=== PATIENT | male | born 1975 | race Two or more races ===

== ENCOUNTER 2024-08-24 10:55 | Day surgery (SDC) | payer BC, SELFPAY ==
[2024-08-19 10:26] VITALS: BMI 32.0
--- NOTE | 2024-08-19 10:38 | EKG_ITS ---
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
[2024-08-19 11:36] LABS: Collection Type, Urine Clean Catch
[2024-08-19 11:44] LABS: Basophils # (Auto) 0.1 Thou/mm3 (0.0-0.2); Basophils % (Auto) 1 % (0-2.5); Eosinophils # (Auto) 0.2 Thou/mm3 (0.0-0.5); Eosinophils % (Auto) 2 % (0-10); Hemoglobin 16.1 g/dL (13.5-16.0); Immature Granulocytes % (Auto) 0 % (0-0); Immature Granulocytes Auto 0.02 Thou/mm3 (0.00-0.00); Lymphocytes # (Auto) 1.7 Thou/mm3 (1.0-4.8); Lymphocytes % (Auto) 25 % (10-50); Mean Corpuscular Hemoglobin 30.1 pg (25.0-35.0); Mean Corpuscular Volume 86 fL (80-100); Monocytes # (Auto) 0.8 Thou/mm3 (0.0-0.8); Monocytes % (Auto) 13 % (0-12); Neutrophils # (Auto) 3.9 Thou/mm3 (1.8-7.7); Neutrophils % (Auto) 59 % (37-80); Nucleated Red Blood Cell % 0 /100 WBC (0); Platelet Count 300 Thou/mm3 (140-440); RDW Standard Deviation 41.2 fL (35.1-43.9); Red Blood Count 5.35 Miln/mm3 (4.50-5.90); White Blood Count 6.6 Thou/mm3 (3.8-10.6)
[2024-08-19 11:46] LABS: Bilirubin,Urine Negative (Negative); Blood,Urine Negative (Negative); Clarity,Urine Clear (Clear/Hazy); Color,Urine Colorless (Lt Yel-Yel); Glucose, Urine Negative (Negative); Ketones,Urine Negative (Negative); Leukocyte Esterase,Urine Negative (Negative); Nitrite,Urine Negative (Negative); Protein,Urine Negative (Neg - Trace); RBC,Urine 1 /hpf (0-3); Squamous Epithelial Cell,Urine < 1 /hpf (0-5); Urobilinogen,Urine Negative mg/dL (0.0-1.0); WBC,Urine < 1 /hpf (0-5)
[2024-08-19 12:01] LABS: Partial Thromboplastin Time 29.8 Seconds (22.0-36.0)
[2024-08-19 12:02] LABS: Alanine Aminotransferase 31 U/L (10-49); Albumin/Globulin Ratio 1.9 (1.2-2.2); Alkaline Phosphatase 112 U/L (46-116); Anion Gap 7 (7-16); Aspartate Amino Transferase 44 U/L (0-34); BUN/Creatinine Ratio 15 Ratio (12-20); Bilirubin,Total 0.9 mg/dL (0.3-1.2); Blood Urea Nitrogen 17 mg/dL (9-23); Calcium 9.7 mg/dL (8.3-10.6); Calcium (Corrected) 9.7 mg/dL (8.5-10.1); Carbon Dioxide 25.3 mMol/L (20.0-31.0); Chloride 103 mMol/L (98-107); Creatinine (Component) 1.1 mg/dL (0.6-1.3); Estimated Creatinine Clearance 94.7 mL/min (>60); Globulin 2.6 gm/dL (2.3-3.5); Glucose 116 mg/dL (74-106); Osmolality,Calculated 272 (275-295); Potassium 4.1 mMol/L (3.4-5.1); Sodium 135 mMol/L (136-145); Total Protein 7.6 gm/dL (5.7-8.2); eGFR > 60 See Note
--- NOTE | 2024-08-23 20:10 | PD.SURHP ---
HPI Date of Admission 08/24/2024 Chief Complaint Chief Complaint: Bleeding hemorrhoids HPI This 49 years old male is brought to operating room for examination under anesthesia and hemorrhoidectomy and fissurectomy and lateral sphincterotomy. Informed consent was obtained. Past Medical History Past Medical History NEUROLOGIC: Negative Neurological Disorders CARDIAC: Positive Cardiac Disorders, Hypercholesterolemia and Hypertension (taking medication); Negative Congestive Heart Failure RESPIRATORY: Positive Respiratory Disorders and Pneumonia (IN THE PAST); Negative Chronic Obstructive Pulmonary Disease (COPD) or Asthma GASTROINTESTINAL: Positive Gastrointestinal Disorders, Diverticulitis and Hemorrhoids; Negative Hepatitis GENITOURINARY: Negative Genitourinary Disorders or Renal Disease MUSCULOSKELETAL: Negative Musculoskeletal Disorders ENT: Negative History of ENT Problems ENDOCRINE: Negative Endocrine Disorders, Diabetes Mellitus Type 1 or Diabetes Mellitus Type 2 HEMATOLOGIC: Negative Blood Disorders or Sickle Cell Disease OTHER HISTORY: Positive Blood Transfusions; Negative Falls, Blood Transfusion Reaction, Anesthesia Reactions, MRSA or Cancer Family History FAMILY HISTORY: Positive Family Cancer (BROTHER-STOMACH CA); Negative Family Anesthesia Reaction Surgical History OTHER SURGICAL HX: COLONOSCOPY Social History SMOKING STATUS: Former smoker SUBSTANCE USE: does not use Travel History EBOLA RISK: No Meds Home Medications and Allergies Home Medications ?Medication ?Instructions ?Recorded ?Confirmed ?Type amlodipine 2.5 mg tablet 2.5 mg PO QDAY 08/19/24 08/19/24 History lisinopril 40 mg tablet 40 mg PO QDAY 08/19/24 08/19/24 History simvastatin 20 mg tablet 20 mg PO ONCE PM 08/19/24 08/19/24 History Allergies Allergy/AdvReac Type Severity Reaction Status Date / Time No Known Allergies Allergy Verified 08/19/24 10:22 Exam Constitutional Constitutional: no acute distress Routine HEENT Exam Head: Present normocephalic Eye: Present EOMI and PERRL ENT: Present mucous membranes moist Routine Neck Exam Neck: Present supple and trachea midline Routine Chest/Breast/Axilla Exam Chest wall: Absent tenderness or mass Routine Respiratory Exam Respiratory: Present chest non-tender, lungs clear, normal breath sounds and no resp distress; Absent respiratory distress Routine Cardiovascular Exam Cardiovascular: Present RRR Routine Abdominal Exam Abdominal: Present soft and normoactive bowel sounds Routine Rectal Exam Comments: There are internal and external hemorrhoids and fissure in ano. Routine Extremities Exam Extremities: Present full ROM Routine Skin Exam Skin: Present intact, dry and warm Routine Neurological Exam Neurological: Present alert, oriented X3 and CN II-XII intact Routine Psychiatric Exam Psychiatric: Present normal affect and normal thought process Results Results: Laboratory Laboratory results: results reviewed Assessment & Plan Problem List (1) Third degree hemorrhoids: Status: Acute (2) Anal fissure: Status: Acute (3) Rectal bleeding: Status: Acute Plan Hemorrhoidectomy and fissurectomy. Lateral sphincterotomy. Informed consent was obtained. Quality Measures Quality Measures none
[2024-08-24] VITALS (9 sets, daily range): BP systolic 98–157; BP diastolic 60–98; PULSE 61–83; RESP 12–17; TEMP 36.2–36.5; O2SAT 95–100; BMI 31.4
[2024-08-24] MEDS: RINGERS LACTATED 1000 ML 1,000 ML 60 ML IV (11:39)
--- NOTE | 2024-08-24 13:45 | SUR.PHASEI ---
pt arrived to PACU via gurney with nasal airway in place, breathing unlabored, dressing to rectal area clean, dry, and intact, report from Sandi LOVE and Jerson LARA
--- NOTE | 2024-08-24 14:02 | SUR.PHASEI ---
report to Aston LOVE
[2024-08-24] MEDS: ONDANSETRON INJ 2 MG/ML INJ 2 ML 4 MG IV (14:08)
[2024-08-24] MEDS: fentaNYL CIT INJ 50 mCg/ML AMP 2ML 25 MCG IV (14:29)
--- NOTE | 2024-08-24 14:57 | PD.SUROPNT ---
Date of Procedure 08/24/24 Pre Op Diagnosis Internal and external hemorrhoids with fissure in ano Post Op Diagnosis Same. Procedure Internal and external hemorrhoidectomy with fissurectomy and lateral sphincterotomy. Findings This patient has had significant rectal bleeding he was found to have internal and external hemorrhoids located at 3:00 9:00 and 11 o'clock position. There was a deep posterior fissure in with hypertrophy of the anal sphincter. There were no other findings. Procedure Description The patient was interviewed in the preop area. Patient understanding of surgery was discussed and is ascertained that patient knows what procedure we are going to do. The risk benefits and alternatives of hemorrhoidectomy surgery were discussed in detail with the patient and informed consent is obtained. The risk includes risk of bleeding infection urinary retention possible long-term recurrence of the hemorrhoids and anesthesia related complications. The patient has done bowel prep as prescribed. Patient was taken to the operating room and laid supine on the operating room table. General anesthesia was administered satisfactorily. Patient is positioned in the lithotomy position on yellowfins. Perianal region is prepped and draped in usual manner. A timeout procedure was carried out. A dilute lidocaine with epinephrine is injected and pararectal and internal pudendal blocks were achieved bilaterally. Examination is carried out under anesthesia and shows that the patient has extensive hemorrhoids. The hemorrhoid at 3 o'clock position, 9 o'clock position were removed. All hemorrhoids were removed by similar technique. For each hemorrhoid pedicles were ligated with 3-0 Vicryl sutures. After that a V-shaped incision was made around the external hemorrhoid and was dissected from the sphincter. The internal sphincter was identified and was protected. The hemorrhoids were removed as a specimen. 11 o'clock position large internal hemorrhoid was suture-ligated with 3-0 Vicryl [id number] stitches.. Furthermore there was an internal hemorrhoid at 2 o'clock position that was suture-ligated. The fissure was dissected and scar tissue was removed. After all this hemostasis is achieved. Significant amount of mucosa and the anal skin were left between the excisions in order to prevent the rodriguez deformity. The hemorrhoidal incisions were kept open for secondary healing. Dilute lidocaine solution is infiltrated again. Lidocaine with Silverdene cream is applied. A cigarette drain fashioned from a 4 x 4 gauze is placed in the anal canal. Sterile dressing is applied. Patient tolerated the procedure very well. Pathology / specimen Other (Hemorrhoid at 3:00 and 9 o'clock position) Estimated Blood Loss 10 Condition Stable Disposition PACU Surgeon Romeo Bell MD Surgical Staff Operation Date: 08/24/24 13:15 Case Staff SOCIAL SERVICE AGENCY DIRECTOR: Mahesh Martinez RN wire coiler Ela surgical technician
--- NOTE | 2024-08-24 15:00 | SUR.PHASEII ---
pt able to tolerate oral fluids without difficulty swallowing or nausea/vomiting.
--- NOTE | 2024-08-24 15:27 | SUR.PHASEII ---
pt awake and alert, breathing unlabored on room air. v/s stable. pt dressing to rectal area scant blood noted. pt able to ambulate to wheelchair with steady gait. d/c instructions given with sister Sarah in room, all questions answered. pt d/c via wheelchair with all belongings.
== END 2024-08-24 15:27 | disposition home or self-care (01) ==
PROVIDERS: PCP Registered Nurse; Referring Provider Specialist; Visit Provider Specialist
PROC: (CPT 46261; principal; 2024-08-24 13:00)
DX: K60.2 Anal fissure, unspecified (principal); E78.00 Pure hypercholesterolemia, unspecified; I10 Essential (primary) hypertension; K64.4 Residual hemorrhoidal skin tags; K64.8 Other hemorrhoids; Z87.19 Personal history of other diseases of the digestive system; Z87.891 Personal history of nicotine dependence
CPT/HCPCS: 46261; 46080; 36415; 80053; 81001; 85025; 85610; 85730; 93005; A4649; J1885; J2250; J2405; J2704; J3010; J3490; J7040; J7120; A9270

== ENCOUNTER 2024-08-25 09:37 | Emergency (ER) | payer BC, SELFPAY ==
--- NOTE | 2024-08-25 09:58 | PC.NURSE ---
Patient to er from [facility] and taken to rm 2 with c/o rectal bleeding this am at approx. 0900. Patient states he has soiled 5 pads since 0900am and has had copious amounts of bright red blood filling up the toilet today. patient also c/o a lot of bright red blood in his urine, patient s/p hemoirroidectomy yesterday here at [facility] by Dr. Bell. Patient states pain is 10/10 to lower abdomen and rectum. Skin is warm dry and pink at this time. Bedside commode placed at bedside. Chart up to be seen by er provider.
[2024-08-25 10:07] VITALS: BP 138/94; PULSE 108; RESP 24; TEMP 37.6; O2SAT 96
[2024-08-25 10:08] VITALS: BMI 33.3
[2024-08-25 10:35] VITALS: PULSE 95
--- NOTE | 2024-08-25 10:36 | PC.NURSE ---
performed in and out cathetar for visualization only, do not send for analysis per Dr. Alcantara
[2024-08-25] MEDS: DiphenhydrAMINE 25 MG CAPSULE 50 MG PO (10:44)
[2024-08-25] MEDS: ACETAMINOPHEN 325 MG TABLET 650 MG PO (10:45)
[2024-08-25 10:54] LABS: Basophils % (Auto) 1 % (0-2.5); Eosinophils # (Auto) 0.1 Thou/mm3 (0.0-0.5); Eosinophils % (Auto) 1 % (0-10); Hematocrit 36.7 % (41.0-53.0); Hemoglobin 12.5 g/dL (13.5-16.0); Immature Granulocytes % (Auto) 0 % (0-0); Immature Granulocytes Auto 0.02 Thou/mm3 (0.00-0.00); Lymphocytes # (Auto) 1.1 Thou/mm3 (1.0-4.8); Lymphocytes % (Auto) 16 % (10-50); Mean Corpuscular HGB Conc 34.1 g/dl (31.0-37.0); Mean Corpuscular Hemoglobin 30.3 pg (25.0-35.0); Mean Corpuscular Volume 89 fL (80-100); Monocytes # (Auto) 0.8 Thou/mm3 (0.0-0.8); Monocytes % (Auto) 12 % (0-12); Neutrophils # (Auto) 4.6 Thou/mm3 (1.8-7.7); Neutrophils % (Auto) 70 % (37-80); Nucleated Red Blood Cell % 0 /100 WBC (0); Platelet Count 257 Thou/mm3 (140-440); RDW Standard Deviation 45.8 fL (35.1-43.9); Red Blood Count 4.13 Miln/mm3 (4.50-5.90); White Blood Count 6.5 Thou/mm3 (3.8-10.6)
--- NOTE | 2024-08-25 11:03 | PD.EDADULT ---
ED General RME/HPI General Chief complaint: General Adult/Misc Complain Stated complaint: S/P HEMORRHOID SURGERY YESTERDAY, BLEEDING Time Seen by Provider: 08/25/24 10:22 Arrival date/time: 08/25/24 09:37 RME / HPI RME / HPI narrative: 49 year old male with long history of rectal bleeding s/p hemorrhoidectomy and fissurectomy performed by Dr. Bell yesterday 08/24 presents to the ED for progressively worsening rectal bleeding today. States he was doing fine after the surgery and through the evening. However, today noted a moderate amount of blood in the toilet. Denies any chest pain or shortness of breath. States he was prescribed Lejunior but because he is a recovering addict he does has not taken any controlled substance. Related Data Home Medications ?Medication ?Instructions ?Recorded ?Confirmed amlodipine 2.5 mg tablet 2.5 mg PO QDAY 08/19/24 08/24/24 lisinopril 40 mg tablet 40 mg PO QDAY 08/19/24 08/24/24 simvastatin 20 mg tablet 20 mg PO ONCE PM 08/19/24 08/19/24 Previous Rx's ?Medication ?Instructions ?Recorded hydrocodone 10 mg-acetaminophen 1 tab PO Q6H PRN pain #28 tabs 08/24/24 325 mg tablet lidocaine-prilocaine 2.5 %-2.5 % 60 g topical TID Postoperative 4 08/24/24 topical cream weeks #30 grams diphenhydramine HCl 25 mg capsule 50 mg (2 x 25 mg) PO TID PRN sleep 08/25/24 (Benadryl) #20 caps Allergies Allergy/AdvReac Type Severity Reaction Status Date / Time No Known Allergies Allergy Verified 08/25/24 09:40 Review of Systems Review of Systems Narrative Review of Systems: Gen: No fever, no chills, no weight loss EYES: No discharge, no visual changes, no pain HEENT: No ear pain, no congestion, no sore throat PULM: no shortness of breath, no cough, no congestion CV: No chest pain, no dyspnea on exertion, no palpitations, no chest tightness GI: No nausea, no vomiting, no diarrhea, no pain, no constipation, +rectal bleeding : No frequency, no urgency,? no dysuria Musc/skel: No joint pain, no back pain Skin: No rash, no ecchymosis, no lesions Neuro: No weakness, no headache Past Medical History Past Medical History NEUROLOGIC: Negative Neurological Disorders or Seizures CARDIAC: Positive Cardiac Disorders, Hypercholesterolemia and Hypertension RESPIRATORY: Positive Pneumonia GASTROINTESTINAL: Positive Gastrointestinal Disorders, Diverticulitis and Hemorrhoids GENITOURINARY: Negative Genitourinary Disorders or Renal Disease MUSCULOSKELETAL: Negative Musculoskeletal Disorders ENDOCRINE: Negative Endocrine Disorders, Diabetes Mellitus Type 1 or Diabetes Mellitus Type 2 HEMATOLOGIC: Negative Blood Disorders or Sickle Cell Disease OTHER HISTORY: Positive Blood Transfusions Family History FAMILY HISTORY: Positive Family Cancer Social History SMOKING STATUS: Never smoker SUBSTANCE USE: does not use ED Exam Narrative Physical exam: GENERAL APPEARANCE: AxOx4, no obvious distress, nontoxic appearing HEENT: NC, AT. MMM. EOMI, clear conjunctiva, oropharynx clear. NECK: Supple without lymphadenopathy. No stiffness or restricted ROM. HEART: Normal rate and regular rhythm, normal S1/S1, no m/r/g LUNGS: CTAB, moving air well. No crackles or wheezes are heard. ABDOMEN: Soft, nontender, nondistended with good bowel sounds heard. RECTAL: wound stumps around rectum at 3 o'clock, 6 o'clock, and 9 o'clock that are clean and not bleeding. BACK: No midline C/T/L spine pain or deformity, No CVAT, no obvious deformity. EXTREMITIES: Without cyanosis, clubbing or edema. MUSCULOSKELETAL: FROM of all major joints, no chest tenderness NEUROLOGICAL: Grossly nonfocal. Alert and oriented, moving all 4 extremities. CN not formally tested but appear grossly intact. Skin: Warm and dry without any rash. 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 Plan to repeat H/H in 3 hours. Time: 11:00 Reevaluation #2: Repeat H/H remains stable. We reviewed all the results, analysis, and treatment plans. Patient is amenable to discharge. Strict return precautions were outlined. Patient was discharged in stable condition. Time: 14:00 Vital Signs Vital signs: Vital Signs Temperature 99.7 F 08/25/24 10:07 Pulse Rate 108 H 08/25/24 10:07 Respiratory Rate 24 H 08/25/24 10:07 Blood Pressure 138/94 H 08/25/24 10:07 Pulse Oximetry (%) 96 08/25/24 10:07 Oxygen Delivery Method Room Air 08/25/24 10:07 Pulse ox is 96% on room air which is adequate. [facility] Patient data External records reviewed:: [facility] previous records (I reviewed operative report from yesterday 08/24/2024) Clinical information provided by:: patient Social determinants that could affect healthcare access:: none Patient has the following chronic illnesses:: Hx of rectal bleeding s/p rectal bleeding s/p hemorrhoidectomy and fissurectomy performed by Dr. Bell yesterday 08/24 How is presenting disease/condition affected by chronic disease/condition?: exacerbated by Evaluation data The following diagnostics were reviewed and interpreted by me:: lab results Lab and/or radiology exams considered but not ordered:: None Interpretation Summary: As noted above Medications Medications considered but not ordered:: None Medication administrations:: Medication Administration History Discontinued Medications Acetaminophen (Acetaminophen 325 Mg Tablet) 650 mg PO X1 ONE Stop: 08/25/24 10:23 Last Admin: 08/25/24 10:45 Dose: 650 mg Documented By: ESTELA Diphenhydramine HCl (Diphenhydramine 25 Mg Capsule) 50 mg PO X1 ONE Stop: 08/25/24 10:23 Last Admin: 08/25/24 10:44 Dose: 50 mg Documented By: ESTELA See above Consultations Consultation(s) initiated? (list below): No Diagnosis Differential Diagnosis ED Complaint MDM: Anemia, rectal bleeding, hemorrhoids Most likely diagnosis given after review of the tests above:: Third degree hemorrhoids Anemia Admission Indicated Admission indicated?: not indicated Explain why admission is indicated or not indicated:: Repeat H/H remain stable, symptoms improved Admission Request Was there a request for admission?: No Disposition Plan Disposition Plan: Discharge Discharge Attestation Discharge Attestation: The patient and all family members were given an opportunity to ask questions and understood the discharge instructions. Discharge instructions specifically effects, indications for sooner follow up or return to the emergency department, and the expected course of current diagnosis. Patient condition: Stable Medical Decision Making Differential Diagnosis Differential Diagnosis: Anemia, rectal bleeding, hemorrhoids Lab Data 08/25/24 13:49 Labs: Lab Results 08/25/24 08/25/24 Range/Units 10:40 13:49 WBC 6.5 (3.8-10.6) Thou/mm3 RBC 4.13 L (4.50-5.90) Miln/mm3 Hgb 12.5 L D 12.3 L (13.5-16.0) g/dL Hct 36.7 L 35.7 L (41.0-53.0) % MCV 89 (80-100) fL MCH 30.3 (25.0-35.0) pg MCHC 34.1 (31.0-37.0) g/dl RDW Std Deviation 45.8 H (35.1-43.9) fL Plt Count 257 D (140-440) Thou/mm3 Neut % (Auto) 70 (37-80) % Lymph % (Auto) 16 (10-50) % Sanders % (Auto) 12 (0-12) % Eos % (Auto) 1 (0-10) % Baso % (Auto) 1 (0-2.5) % Neut # (Auto) 4.6 (1.8-7.7) Thou/mm3 Lymph # (Auto) 1.1 (1.0-4.8) Thou/mm3 Sanders # (Auto) 0.8 (0.0-0.8) Thou/mm3 Eos # (Auto) 0.1 (0.0-0.5) Thou/mm3 Baso # (Auto) 0.0 (0.0-0.2) Thou/mm3 Immature Gran # (Auto) 0.02 H (0.00-0.00) Thou/mm3 Absolute Nucleated RBC 0.00 (0.00-0.00) Thou/mm3 Immature Gran % 0 (0-0) % Nucleated RBC % 0 (0) /100 WBC Discharge Plan Plan Patient Disposition: HOME (Self Care) Prescriptions/Referrals Prescriptions/Med Rec: New diphenhydramine HCl [Benadryl] 25 mg capsule 50 mg PO TID PRN (Reason: sleep) Qty: 20 0RF No Action amlodipine 2.5 mg tablet 2.5 mg PO QDAY Patient Comments: TAKE 1 TABLET BY MOUTH ONCE DAILY simvastatin 20 mg tablet 20 mg PO ONCE PM Patient Comments: TAKE 1 TABLET BY MOUTH ONCE DAILY IN THE EVENING lisinopril 40 mg tablet 40 mg PO QDAY Patient Comments: TAKE 1 TABLET BY MOUTH ONCE DAILY FOR 90 DAYS hydrocodone-acetaminophen 10-325 mg tablet 1 tab PO Q6H MDD 4 PRN (Reason: pain) Qty: 28 0RF lidocaine-prilocaine 2.5-2.5 % cream 60 g topical TID MDD 10 g 28 Days Qty: 30 10RF Referrals: Romeo Bell MD [Primary Care Provider] - In 1 week Problem List Clinical Impression: Third degree hemorrhoids, Anemia Patient/Caregiver Discharge Instructions Education Materials: Treating Hemorrhoids: Surgery, ED Hemorrhoids Additional Instructions: Follow-up with Dr. Bell in 1-2 days for recheck. You can return to your nearest emergency department if symptoms worsen or for any new or concerning issues. Print Language: Icelandic Stand Alone Forms: [employer] Award Info., Patient Portal Info Letter
[2024-08-25 11:59] VITALS: BP 139/89; PULSE 86; RESP 20; O2SAT 94
--- NOTE | 2024-08-25 12:00 | PC.NURSE ---
patient lying in gurney quietly with eyes closed on left lateral side, currently no rectal bleeding at this time, patient states pain to rectum and abdomen is 5/10 at this time, per Dr. Alcantara will repeat CBC in 3 hrs, patient and sister Emili made aware. Call light within reach.
[2024-08-25 14:04] LABS: Hematocrit 35.7 % (41.0-53.0); Hemoglobin 12.3 g/dL (13.5-16.0)
[2024-08-25 14:30] VITALS: BP 142/76; PULSE 91; RESP 16; TEMP 36.8; O2SAT 97
== END 2024-08-25 14:30 | disposition home or self-care (01) ==
PROVIDERS: Emergency Provider Emergency Medicine; PCP Specialist
DX: K64.2 Third degree hemorrhoids (principal); D64.9 Anemia, unspecified
CPT/HCPCS: 51701; 36415; 85014; 85018; 85025; 99283; A9270

== ENCOUNTER 2024-08-26 13:08 | Emergency (ER) | payer BC, SELFPAY ==
[2024-08-26 13:18] VITALS: BP 154/106; BP 174/129; PULSE 100; RESP 19; TEMP 36.8; O2SAT 98
[2024-08-26 13:55] VITALS: BP 163/111; PULSE 106; PULSE 93; RESP 16; O2SAT 95; O2SAT 96; BMI 31.4
--- NOTE | 2024-08-26 13:55 | PC.NURSE ---
rectal bleeding for 2 days since had surgery on 08/24/24 for hemmorroids
--- NOTE | 2024-08-26 14:01 | PD.EDADULT ---
ED General RME/HPI General Chief complaint: GI Bleed Stated complaint: RECTAL BLEED Time Seen by Provider: 08/26/24 13:37 Arrival date/time: 08/26/24 13:08 RME / HPI RME / HPI narrative: 49 year old male with history of rectal bleeding s/p hemorrhoidectomy and fissurectomy performed by Dr. Blel on 08/24/2024 presents to the ED for rectal bleeding today. Patient was evaluated here for similar rectal bleeding and had labs performed. Per EMR review, the patients hemoglobin had dropped and subsequent levels remained stable. The bleeding had improved and was sent home. States he again began bleeding prompting return to ED. No other complaints reported. Related Data Home Medications ?Medication ?Instructions ?Recorded ?Confirmed amlodipine 2.5 mg tablet 2.5 mg PO QDAY 08/19/24 08/24/24 lisinopril 40 mg tablet 40 mg PO QDAY 08/19/24 08/24/24 simvastatin 20 mg tablet 20 mg PO ONCE PM 08/19/24 08/19/24 Previous Rx's ?Medication ?Instructions ?Recorded hydrocodone 10 mg-acetaminophen 1 tab PO Q6H PRN pain #28 tabs 08/24/24 325 mg tablet lidocaine-prilocaine 2.5 %-2.5 % 60 g topical TID Postoperative 4 08/24/24 topical cream weeks #30 grams diphenhydramine HCl 25 mg capsule 50 mg (2 x 25 mg) PO TID PRN sleep 08/25/24 (Benadryl) #20 caps Allergies Allergy/AdvReac Type Severity Reaction Status Date / Time No Known Allergies Allergy Verified 08/25/24 09:40 Review of Systems Review of Systems Narrative Review of Systems: Gen: No fever, no chills, no weight loss EYES: No discharge, no visual changes, no pain HEENT: No ear pain, no congestion, no sore throat PULM: no shortness of breath, no cough, no congestion CV: No chest pain, no dyspnea on exertion, no palpitations, no chest tightness GI: No nausea, no vomiting, no diarrhea, no pain, no constipation, +rectal bleeding : No frequency, no urgency,? no dysuria Musc/skel: No joint pain, no back pain Skin: No rash, no ecchymosis, no lesions Neuro: No weakness, no headache Past Medical History Past Medical History CARDIAC: Positive Cardiac Disorders, Hypercholesterolemia and Hypertension RESPIRATORY: Positive Pneumonia GASTROINTESTINAL: Positive Gastrointestinal Disorders, Diverticulitis and Hemorrhoids OTHER HISTORY: Positive Blood Transfusions Family History FAMILY HISTORY: Positive Family Cancer; Negative Family Anesthesia Reaction Social History SMOKING STATUS: Never smoker SUBSTANCE USE: does not use ED Exam Narrative Physical exam: GENERAL APPEARANCE: AxOx4, no obvious distress, nontoxic appearing HEENT: NC, AT. MMM. EOMI, clear conjunctiva, oropharynx clear. NECK: Supple without lymphadenopathy. No stiffness or restricted ROM. HEART: Normal rate and regular rhythm, normal S1/S1, no m/r/g LUNGS: CTAB, moving air well. No crackles or wheezes are heard. ABDOMEN: Soft, nontender, nondistended with good bowel sounds heard. RECTAL: wound stumps around rectum at 3 o'clock, 6 o'clock, and 9 o'clock that are clean and not bleeding. BACK: No midline C/T/L spine pain or deformity, No CVAT, no obvious deformity. EXTREMITIES: Without cyanosis, clubbing or edema. MUSCULOSKELETAL: FROM of all major joints, no chest tenderness NEUROLOGICAL: Grossly nonfocal. Alert and oriented, moving all 4 extremities. CN not formally tested but appear grossly intact. Skin: Warm and dry without any rash. Course Quality Measures none Orders Category Date Time Status Insert IV NOW Care 08/26/24 13:38 Completed CBC Stat Lab 08/26/24 13:51 Completed CMP [Comprehensive Metabolic Panel] Stat Lab 08/26/24 13:51 Completed Partial Thromboplastin Time Stat Lab 08/26/24 13:51 Completed Prothrombin Time with INR Stat Lab 08/26/24 13:51 Completed Type and Screen Stat Lab 08/26/24 13:51 Completed Acetaminophen Tab [Tylenol Tab] Med 08/26/24 13:38 Discontinued 650 mg PO X1 ONE DiphenhydrAMINE INJ [Benadryl Inj] Med 08/26/24 13:38 Discontinued 50 mg IV X1 ONE Vital Signs Vital signs: Vital Signs Temperature 98.2 F 08/26/24 13:18 Pulse Rate 100 08/26/24 13:18 Respiratory Rate 19 08/26/24 13:18 Blood Pressure 154/106 H 08/26/24 13:18 Pulse Oximetry (%) 98 08/26/24 13:18 Oxygen Delivery Method Room Air 08/26/24 13:18 Pulse ox is 98% on room air which is adequate. [facility] Patient data External records reviewed:: [facility] previous records (I reviewed labs from yesterday 08/25/2024 ) and EMS form Clinical information provided by:: patient and EMS Social determinants that could affect healthcare access:: none Patient has the following chronic illnesses:: HTN, rectal bleeding, s/p How is presenting disease/condition affected by chronic disease/condition?: exacerbated by Evaluation data The following diagnostics were reviewed and interpreted by me:: lab results, radiology exam(s) and EKG tracing(s) Lab and/or radiology exams considered but not ordered:: None Interpretation Summary: As noted above Medications Medications considered but not ordered:: None Medication administrations:: Medication Administration History Discontinued Medications Acetaminophen (Acetaminophen 325 Mg Tablet) 650 mg PO X1 ONE Stop: 08/26/24 13:39 Last Admin: 08/26/24 15:33 Dose: 650 mg Documented By: FRANCESCA Diphenhydramine HCl (Diphenhydramine Inj 50 Mg/Ml Vial) 50 mg IV X1 ONE Stop: 08/26/24 13:39 Last Admin: 08/26/24 15:33 Dose: 50 mg Documented By: See above Consultations Consultation(s) initiated? (list below): Yes Consultation #1 (Physician, Specialty, Details): I spoke with surgeon Dr. Bell. Discussed patients HPI, ED course, exam findings, and lab results. Requesting repeat H/H. Time: 13:40 Consultation #2 (Physician, Specialty, Details): Dr. Bell is bedside with the patient, after examination, no longer bleeding as well, he recommends follow-up with him tomorrow for reevaluation Time: 16:30 Diagnosis Differential Diagnosis ED Complaint MDM: Rectal bleeding, anemia, hemorrhoids Most likely diagnosis given after review of the tests above:: See below Admission Indicated Admission indicated?: not indicated Explain why admission is indicated or not indicated:: As per narrative Admission Request Was there a request for admission?: No Disposition Plan Disposition Plan: Discharge Discharge Attestation Discharge Attestation: The patient and all family members were given an opportunity to ask questions and understood the discharge instructions. Discharge instructions specifically effects, indications for sooner follow up or return to the emergency department, and the expected course of current diagnosis. Patient condition: Stable Medical Decision Making MDM Narrative [facility] Narrative: Mr. Tyson has a history of chronic hemorrhoidal bleeding who underwent hemorrhoidectomy 2 days ago with occasional expected rectal bleeding after the surgery. He was seen by me yesterday where it was first noted that he had a mild drop in his hemoglobin in comparison to his preop testing. This could be from the postprocedural bleeding events, but also due to the procedure itself. Otherwise he has stable vital signs and it is not expected typically from hemorrhoids to be bleeding to a critical anemia level. He did have an additional episode of bleeding this morning, and presents to the emergency department by my examination is no longer bleeding again. Hemoglobin is stable, and given this is a second visit to the emergency department post procedure, the case was discussed with Dr. Gandara who has also seen the patient in the emergency department states is appropriate for outpatient follow-up with him.. Differential Diagnosis Differential Diagnosis: Rectal bleeding, anemia, hemorrhoids Lab Data 08/26/24 13:51 08/26/24 13:51 Labs: Lab Results 08/26/24 Range/Units 13:51 WBC 6.8 (3.8-10.6) Thou/mm3 RBC 4.37 L (4.50-5.90) Miln/mm3 Hgb 13.1 L (13.5-16.0) g/dL Hct 38.2 L (41.0-53.0) % MCV 87 (80-100) fL MCH 30.0 (25.0-35.0) pg MCHC 34.3 (31.0-37.0) g/dl RDW Std Deviation 44.2 H (35.1-43.9) fL Plt Count 261 (140-440) Thou/mm3 Neut % (Auto) 64 (37-80) % Lymph % (Auto) 22 (10-50) % [place] % (Auto) 12 (0-12) % Eos % (Auto) 2 (0-10) % Baso % (Auto) 1 (0-2.5) % Neut # (Auto) 4.3 (1.8-7.7) Thou/mm3 Lymph # (Auto) 1.5 (1.0-4.8) Thou/mm3 [place] # (Auto) 0.8 (0.0-0.8) Thou/mm3 Eos # (Auto) 0.1 (0.0-0.5) Thou/mm3 Baso # (Auto) 0.1 (0.0-0.2) Thou/mm3 Immature Gran # (Auto) 0.01 H (0.00-0.00) Thou/mm3 Absolute Nucleated RBC 0.00 (0.00-0.00) Thou/mm3 Immature Gran % 0 (0-0) % Nucleated RBC % 0 (0) /100 WBC PT 11.1 (9.0-12.2) Seconds INR 1.0 (0.9-1.3) APTT 26.4 (22.0-36.0) Seconds Sodium 137 (136-145) mMol/L Potassium 4.0 (3.4-5.1) mMol/L Chloride 105 (98-107) mMol/L Carbon Dioxide 19.5 L (20.0-31.0) mMol/L Anion Gap 13 (7-16) BUN < 5 L (9-23) mg/dL Creatinine 1.1 (0.6-1.3) mg/dL Estim Creat Clear Calc 93.9 (>60) mL/min eGFR > 60 (60 - ) See Note BUN/Creatinine Ratio 5 L (12-20) Ratio Glucose 105 (74-106) mg/dL Calculated Osmolality 271 L (275-295) Calcium 9.4 (8.3-10.6) mg/dL Corrected Calcium 9.4 (8.5-10.1) mg/dL Total Bilirubin 0.6 (0.3-1.2) mg/dL AST 29 (0-34) U/L ALT 23 (10-49) U/L Alkaline Phosphatase 113 (46-116) U/L Total Protein 7.0 (5.7-8.2) gm/dL Albumin 4.7 (3.5-5.0) gm/dL Globulin 2.3 (2.3-3.5) gm/dL Albumin/Globulin Ratio 2.0 (1.2-2.2) Blood Type O Positive Antibody Screen NEGATIVE Blood Bank Wristband ID Yes Discharge Plan Plan Patient Disposition: HOME (Self Care) Prescriptions/Referrals Prescriptions/Med Rec: No Action amlodipine 2.5 mg tablet 2.5 mg PO QDAY Patient Comments: TAKE 1 TABLET BY MOUTH ONCE DAILY simvastatin 20 mg tablet 20 mg PO ONCE PM Patient Comments: TAKE 1 TABLET BY MOUTH ONCE DAILY IN THE EVENING lisinopril 40 mg tablet 40 mg PO QDAY Patient Comments: TAKE 1 TABLET BY MOUTH ONCE DAILY FOR 90 DAYS hydrocodone-acetaminophen 10-325 mg tablet 1 tab PO Q6H MDD 4 PRN (Reason: pain) Qty: 28 0RF lidocaine-prilocaine 2.5-2.5 % cream 60 g topical TID MDD 10 g 28 Days Qty: 30 10RF diphenhydramine HCl [Benadryl] 25 mg capsule 50 mg PO TID PRN (Reason: sleep) Qty: 20 0RF Referrals: Blanca Palacios, INSEMINATOR [Primary Care Provider] - In 1 week Problem List Clinical Impression: Hemorrhoids, complicated, Anemia Patient/Caregiver Discharge Instructions Education Materials: ED Anemia Type Not Specified, ED Hemorrhoids Additional Instructions: Follow-up with Dr. Bell as scheduled tomorrow. You can return to the emergency department sooner if symptoms worsen or for any new or concerning issues. Print Language: German Stand Alone Forms: [employer] Award Info., Patient Portal Info Letter
[2024-08-26 14:10] LABS: Basophils # (Auto) 0.1 Thou/mm3 (0.0-0.2); Basophils % (Auto) 1 % (0-2.5); Eosinophils # (Auto) 0.1 Thou/mm3 (0.0-0.5); Eosinophils % (Auto) 2 % (0-10); Hematocrit 38.2 % (41.0-53.0); Hemoglobin 13.1 g/dL (13.5-16.0); Immature Granulocytes % (Auto) 0 % (0-0); Immature Granulocytes Auto 0.01 Thou/mm3 (0.00-0.00); Lymphocytes # (Auto) 1.5 Thou/mm3 (1.0-4.8); Lymphocytes % (Auto) 22 % (10-50); Mean Corpuscular HGB Conc 34.3 g/dl (31.0-37.0); Mean Corpuscular Volume 87 fL (80-100); Monocytes # (Auto) 0.8 Thou/mm3 (0.0-0.8); Monocytes % (Auto) 12 % (0-12); Neutrophils # (Auto) 4.3 Thou/mm3 (1.8-7.7); Neutrophils % (Auto) 64 % (37-80); Nucleated Red Blood Cell % 0 /100 WBC (0); Platelet Count 261 Thou/mm3 (140-440); RDW Standard Deviation 44.2 fL (35.1-43.9); Red Blood Count 4.37 Miln/mm3 (4.50-5.90); White Blood Count 6.8 Thou/mm3 (3.8-10.6)
--- NOTE | 2024-08-26 14:16 | PC.NURSE ---
PT REFUSING MEDS AT THIS TIME AND GIVES VERBAL OKAY TO ANSDWER ANY QUESTIONS FROM SISTER, MAGY LOVE (FROM ICU)
[2024-08-26 14:31] LABS: Alanine Aminotransferase 23 U/L (10-49); Albumin, Serum 4.7 gm/dL (3.5-5.0); Alkaline Phosphatase 113 U/L (46-116); Anion Gap 13 (7-16); Aspartate Amino Transferase 29 U/L (0-34); BUN/Creatinine Ratio 5 Ratio (12-20); Bilirubin,Total 0.6 mg/dL (0.3-1.2); Blood Urea Nitrogen < 5 mg/dL (9-23); Calcium 9.4 mg/dL (8.3-10.6); Calcium (Corrected) 9.4 mg/dL (8.5-10.1); Carbon Dioxide 19.5 mMol/L (20.0-31.0); Chloride 105 mMol/L (98-107); Creatinine (Component) 1.1 mg/dL (0.6-1.3); Estimated Creatinine Clearance 93.9 mL/min (>60); Globulin 2.3 gm/dL (2.3-3.5); Glucose 105 mg/dL (74-106); Osmolality,Calculated 271 (275-295); Partial Thromboplastin Time 26.4 Seconds (22.0-36.0); Prothrombin Time 11.1 Seconds (9.0-12.2); Sodium 137 mMol/L (136-145); eGFR > 60 See Note
[2024-08-26] MEDS: ACETAMINOPHEN 325 MG TABLET 650 MG PO (15:33)
[2024-08-26] MEDS: DiphenhydrAMINE INJ 50 MG/ML VIAL IV (15:33)
[2024-08-26 16:00] VITALS: BP 125/88; PULSE 96; RESP 20; TEMP 36.5; O2SAT 96
[2024-08-26 17:00] VITALS: BP 133/85; PULSE 89; RESP 17; TEMP 36.8; O2SAT 96
--- NOTE | 2024-08-26 17:26 | PC.NURSE ---
PER DR. ANDERSON, DR. ANDRADE ON WAY TO SEE PT
--- NOTE | 2024-08-26 17:34 | PC.NURSE ---
DR. ANDRADE HERE TO SEE PT
--- NOTE | 2024-08-26 17:50 | PC.NURSE ---
Spoke to pt at this time; pt aware that Dr. Bell recommends keeping pt overnight due to his rectal bleed but pt refuses to stay in the hospital; per pt, I'm only willing to wait until 7pm for my discharge papers because that's when my sister gets off of work and she can drive me back home.
[2024-08-26 18:23] VITALS: BP 144/83; PULSE 88; RESP 18; TEMP 37.1; O2SAT 99
== END 2024-08-26 19:12 | disposition home or self-care (01) ==
PROVIDERS: Emergency Provider Emergency Medicine; PCP Registered Nurse
DX: K64.9 Unspecified hemorrhoids (principal); D64.9 Anemia, unspecified
CPT/HCPCS: 36415; 80053; 85025; 85610; 85730; 86850; 86900; 86901; 99284; J1200; A9270